=== PATIENT | female | born 1995 | race Caucasian/White ===

== ENCOUNTER 2018-04-22 02:28 | Inpatient (IN) | payer OTHER ==
[2018-04-22] MEDS ORDERED: OXYTOCIN 30 UNITS IN 0.9% NaCl 500ML IV BAG (J2590) As Ordered (02:41)
[2018-04-22] MEDS ORDERED: LR 1,000 ML IV (03:01)
[2018-04-22] MEDS ORDERED: OXYTOCIN DRIP 30 UNITS in APPROPRIATE DILUENT 1 EA IV (03:04)
[2018-04-22] MEDS ORDERED: LACTATED RINGER'S 1000 ML IV (03:15)
[2018-04-22] MEDS ORDERED: METHYLERGONOVINE MALEATE 0.2 MG TAB PO (03:15)
[2018-04-22] MEDS ORDERED: DOCUSATE SODIUM 100 MG CAP PO (03:15)
[2018-04-22] MEDS ORDERED: MOM 30ML SUSPENSION UDC PO (03:15)
[2018-04-22] MEDS ORDERED: OXYTOCIN INJ 10 UNITS/ML VIAL (J2590) IV (03:15)
[2018-04-22] MEDS ORDERED: RHOGAM 300 MCG (1500 IU) INJ (J2790) IM (03:15)
[2018-04-22] MEDS ORDERED: DIBUCAINE 1% OINTMENT 30GM TOP (03:15)
[2018-04-22] MEDS ORDERED: ANUSOL HC CREAM 30GM TOP (03:15)
[2018-04-22] MEDS ORDERED: MEASLES,MUMPS,RUBELLA VACCINE INJ (MMR-II) (90707) SC (03:15)
[2018-04-22 03:24] LABS: HEMATOCRIT 37.4 % (36.0-47.0); HEMOGLOBIN 13.1 g/dl (12.0-15.5); MEAN CORPUSCULAR HEMOGLOBIN 31.2 pg (27.0-33.0); PLATELET COUNT, AUTOMATED 204 10^3/uL (150-450); RED CELL DISTRIBUTION WIDTH 12.7 % (11.5-14.5); WHITE BLOOD COUNT 12.8 10^3/uL (4.0-10.0)
[2018-04-22 03:25] LABS: CORD GAS ABE A -0.3; CORD GAS ABE V 1.3; CORD GAS HCO3 A 24.5 MEQ/L; CORD GAS O2 SAT A 41.5 %; CORD GAS O2 SAT V 69.3 %; CORD GAS PCO2 A 40.8 mmHg; CORD GAS PCO2 V 36.8 mmHg; CORD GAS PH A 7.397 UNITS; CORD GAS PO2 A 18.5 mmHg; CORD GAS PO2 V 26.6 mmHg; CORD GAS SBC A 22.9 MEQ/L; CORD GAS SBC V 24.9 MEQ/L; CORD GAS TCO2 A 25.8 MEQ/L; CORD GAS TCO2 V 26.1 MEQ/L
[2018-04-22] MEDS: IBUPROFEN 800 MG TAB PO ×3 (03:34→22:27)
[2018-04-22] MEDS ORDERED: OXYTOCIN INJ 10 UNITS/ML VIAL (J2590) As Ordered (06:21)
[2018-04-22] MEDS: PRENATAL VITAMINS CHEWABLE TABLET PO (07:38)
[2018-04-22] MEDS: ACETAMINOPHEN 500 MG TAB PO (17:40)
[2018-04-23] MEDS: ACETAMINOPHEN 500 MG TAB PO ×2 (04:15→10:59)
[2018-04-23 07:21] LABS: HEMATOCRIT 37.4 % (36.0-47.0); HEMOGLOBIN 12.8 g/dl (12.0-15.5); MEAN CORPUSCULAR HEMOGLOBIN 31.6 pg (27.0-33.0); MEAN CORPUSCULAR HGB CONC 34.2 g/dl (32.0-36.5); MEAN CORPUSCULAR VOLUME 92.3 fl (80.0-96.0); PLATELET COUNT, AUTOMATED 167 10^3/uL (150-450); RED BLOOD COUNT 4.05 10^6/uL (4.00-5.40); RED CELL DISTRIBUTION WIDTH 13.2 % (11.5-14.5); WHITE BLOOD COUNT 9.5 10^3/uL (4.0-10.0)
[2018-04-23] MEDS: IBUPROFEN 800 MG TAB PO (07:29)
[2018-04-23] MEDS: PRENATAL VITAMINS CHEWABLE TABLET PO (08:32)
== END 2018-04-23 11:25 | disposition home or self-care (01) | DRG 775 ==
LOC: M LDO 02:28 → M LDI 02:35 → M OBS 05:06
PROC: 10E0XZZ Delivery of Products of Conception, External Approach (ICD-10-PCS; principal; 2018-04-22)
DX: O62.3 Precipitate labor (principal); O99.824 Streptococcus B carrier state complicating childbirth; D64.9 Anemia, unspecified; Z3A.39 39 weeks gestation of pregnancy; O99.02 Anemia complicating childbirth; Z37.0 Single live birth